=== PATIENT | female | born 1985 | race Caucasian/White ===

== ENCOUNTER 2021-08-26 12:51 | Inpatient (IN) ==
[2021-08-26] MEDS ORDERED: *HR* LORazepam 2 MG/ML VIAL IM ONE ×3 (13:20→23:12)
[2021-08-26] MEDS ORDERED: Ziprasidone 10 MG, Closed System Device IM Kit 1 EACH in Water for inj. (sterile) 0.5 ML IM ONE ×2 (13:21→13:35)
[2021-08-26] MEDS ORDERED: Water for inj. (sterile) 10 ML ONE (13:23)
[2021-08-26] MEDS ORDERED: Ziprasidone 20 MG/VIAL VIAL IM ONE (13:23)
[2021-08-26 14:45] LABS: Basophils # 0.1 K/mcL (0.0-0.2); Basophils % 0.4 %; Eosinophils # 0.3 K/mcL (0.0-0.6); Eosinophils % 2.5 %; Hematocrit 38.2 % (35.3-44.9); Hemoglobin 12.4 g/dL (11.5-15.4); Immature Granulocytes % 0.4 % (0-4); Lymphocytes # 2.4 K/mcL (0.6-4.6); Lymphocytes % 21.1 %; Mean Corpuscular HGB Conc 32.5 g/dL (31.6-35.5); Mean Corpuscular Hemoglobin 30.8 pg (28.0-33.3); Mean Corpuscular Volume 94.8 fL (83.0-100.0); Monocytes % 8.8 %; Neutrophils # 7.5 K/mcL (1.6-8.9); Platelet Count 362 K/mcL (140-400); Red Blood Count 4.03 M/mcL (3.82-4.97); Red Cell Distribution Width 12.5 % (11.5-14.5); Segmented Neutrophils % 66.8 %; White Blood Count 11.3 K/mcL (4.3-11.1)
[2021-08-26 15:16] LABS: Bacteria,Urine Few per hpf (None-Few); Bilirubin,Urine Negative (Negative); Blood,Urine Negative (Negative); Clarity,Urine Turbid (Clear); Color,Urine Yellow (Yellow); Glucose,Urine (UA) Normal (Normal); Ketones,Urine Trace mg/dL (Negative); Leukocyte Esterase,Urine Negative (Negative); Mucus,Urine Many per lpf (None-Few); Nitrite,Urine Negative (Negative); Protein,Urine 50 mg/dL (Neg-Trace); RBC,Urine 0-3 per hpf (0-3); Specific Gravity,Urine > 1.030 (1.010-1.025); Urobilinogen,Urine Normal (Normal)
[2021-08-26 15:19] LABS: Estimated Average Glucose 108 mg/dl; Hemoglobin A1C 5.4 %
[2021-08-26 15:36] LABS: Acetaminophen < 10 mcg/mL (10-20); BUN/Creatinine Ratio 19 (6-26); Blood Urea Nitrogen 15 mg/dL (6-20); Calcium 9.4 mg/dL (8.6-10.3); Carbon Dioxide 24 mEq/L (23-29); Chloride 106 mEq/L (98-107); Chol/HDL Ratio 2.5 (0-4.9); Cholesterol 159 mg/dL (< 200); Ethanol < 10 mg/dL (Less than 10); Glucose 100 mg/dL (70-105); HDL Cholesterol 64 mg/dL (40-59); LDL Cholesterol,Calculated 82 mg/dL (< 100); Osmolality,Calculated 295 (280-300); Potassium 2.8 mEq/L (3.5-5.1); Salicylate < 2.5 mg/dL (15.0-30.0); Sodium 142 mEq/L (136-145); Triglycerides 65 mg/dL (< 150); eGFR For African Americans > 60 (> 60); eGFR For Non-African Americans > 60 (> 60)
[2021-08-26 15:43] LABS: Amphetamine Screen,Urine Positive ng/mL (Cutoff=1000); Barbiturate Screen,Urine Negative ng/mL (Cutoff=200); Benzodiazepines Screen,Urine Negative ng/mL (Cutoff=200); Cannabinoid Screen,Urine Positive ng/mL (Cutoff = 50); Cocaine Screen,Urine Negative ng/mL (Cutoff= 300); Opiate Screen,Urine Negative ng/mL (Cutoff=300); Phencyclidine Screen,Urine Negative ng/mL (Cutoff=25)
[2021-08-27] MEDS ORDERED: Ziprasidone 20 MG, Closed System Device IM Kit 1 EACH in Water for inj. (sterile) 1 ML IM ONE (00:06)
[2021-08-27] MEDS ORDERED: Ziprasidone 20 MG/VIAL VIAL IM ONE (00:10)
[2021-08-27] MEDS ORDERED: Water for inj. (sterile) 10 ML ONE (00:10)
[2021-08-27] MEDS ORDERED: 0.9 % Sodium Chloride 1,000 ML IVC ONE (02:16)
[2021-08-27 11:23] LABS: Albumin 3.7 g/dL (3.5-5.7); Albumin/Globulin Ratio 1.4 (1.1-2.2); Bilirubin,Direct 0.1 mg/dL (0.0-0.2); Bilirubin,Indirect 0.3 mg/dL (0.0-1.0); Bilirubin,Total 0.4 mg/dL (0.3-1.0); Globulin 2.7 g/dL (2.4-3.5); Total Protein 6.4 g/dL (6.4-8.9)
[2021-08-27 13:48] LABS: Influenza A PCR Negative (Negative); Influenza B PCR Negative (Negative); Resp. Syncytial Virus PCR Negative (Negative)
[2021-08-27 13:59] LABS: SARS-CoV-2 by PCR (In House) Negative (Negative)
[2021-08-27] MEDS: *HR* LORazepam 1 MG TABLET PO PRN (14:52)
[2021-08-27] MEDS: haloperidoL 5 MG TABLET PO PRN (14:52)
[2021-08-27] MEDS: Nicotine 2 MG GUM BC PRN (16:27)
[2021-08-28] MEDS ORDERED: MOM Conc 10 ML UD.LIQ PO PRN (08:05)
[2021-08-28] MEDS: Haloperidol Lactate 5 MG/ML VIAL IM PRN (13:12)
[2021-08-28] MEDS: *HR* LORazepam 2 MG/ML VIAL IM PRN (13:13)
[2021-08-28] MEDS: Nicotine 2 MG GUM BC PRN (20:24)
[2021-08-28] MEDS ORDERED: QUEtiapine Fumarate 100 MG TABLET PO SCH (21:00)
[2021-08-29] MEDS: *HR* LORazepam 2 MG/ML VIAL IM PRN (09:55)
[2021-08-29] MEDS: Haloperidol Lactate 5 MG/ML VIAL IM PRN (09:56)
[2021-08-29] MEDS: Nicotine 2 MG GUM BC PRN ×3 (10:41→20:56)
[2021-08-29] MEDS: Mag Hydrox/Al Hydrox/Simeth 30 ML UDC PO PRN (20:56)
[2021-08-29] MEDS: QUEtiapine Fumarate 100 MG TABLET PO SCH (20:57)
[2021-08-30] MEDS: *HR* LORazepam 1 MG TABLET PO PRN (15:00)
[2021-08-30] MEDS: haloperidoL 5 MG TABLET PO PRN (15:00)
[2021-08-30] MEDS: Nicotine 2 MG GUM BC PRN (15:03)
[2021-08-30] MEDS: Acetaminophen 325 MG TABLET PO PRN (20:14)
[2021-08-30] MEDS: QUEtiapine Fumarate 100 MG TABLET PO SCH (20:14)
[2021-08-31] MEDS: Acetaminophen 325 MG TABLET PO PRN ×2 (11:08→18:01)
[2021-08-31] MEDS: *HR* LORazepam 1 MG TABLET PO PRN ×2 (11:08→21:14)
[2021-08-31] MEDS: haloperidoL 5 MG TABLET PO PRN ×2 (11:09→21:14)
[2021-08-31] MEDS: Mag Hydrox/Al Hydrox/Simeth 30 ML UDC PO PRN (11:09)
[2021-08-31] MEDS: Nicotine 2 MG GUM BC PRN (14:01)
[2021-08-31] MEDS: QUEtiapine Fumarate 100 MG TABLET PO SCH (20:14)
[2021-09-01 09:37] VITALS: BP 112/72; PULSE 84; TEMP 97.2; O2SAT 98
[2021-09-01] MEDS: Nicotine 2 MG GUM BC PRN ×2 (11:15→12:29)
[2021-09-01] MEDS: *HR* LORazepam 1 MG TABLET PO PRN (11:20)
[2021-09-01] MEDS: haloperidoL 5 MG TABLET PO PRN (11:20)
[2021-09-01] MEDS: Mag Hydrox/Al Hydrox/Simeth 30 ML UDC PO PRN (16:23)
== END 2021-09-01 19:10 | disposition home or self-care (01) | DRG 773 ==
LOC: EMEROOARM 12:51 → 1ANU 08-27 14:33
PROVIDERS: ADMIT Psychiatry & Neurology Psychiatry; ATTEND Psychiatry & Neurology Psychiatry